=== PATIENT | male | born 1995 | race Caucasian/White ===

== ENCOUNTER 2023-11-26 20:03 | Inpatient (IN) | payer SELFPAY ==
[~2023-11-26] VITALS: Ht 185.4 cm; Wt 81.8 kg
[2023-11-27] MEDS ORDERED: MAGNESIUM HYDROXIDE SUSPENSION 30 ML UDCUP PO PRN (00:15)
[2023-11-27] MEDS ORDERED: HydrOXYzine PAMOATE 50 MG CAPSULE PO PRN (00:15)
[2023-11-27] MEDS ORDERED: GuaiFENesin/D-METHORPHAN [SUGAR-FREE] 200-20MG/10 ML SYRUP UDCUP PO PRN (00:15)
[2023-11-27] MEDS ORDERED: MAG HYDROX/ALUMINUM HYD/SIMETH ES 30 ML SUSPENSION UDCUP PO PRN (00:15)
[2023-11-27] MEDS ORDERED: LOPERAMIDE HCL 2 MG CAPSULE PO PRN ×2 (00:15)
[2023-11-27] MEDS ORDERED: PROMETHAZINE HCL 25 MG TABLET PO PRN (00:15)
[2023-11-27] MEDS: CYANOCOBALAMIN 1,000 MCG/ML VIAL IM ONE (00:31)
[2023-11-27] MEDS: TUBERCULIN, PURIFIED PROTEIN DERIVATIVE 5 TU/0.1 ML SYRINGE ID ONE (00:32)
[2023-11-27 01:47] LABS: COVID AG,FIA SOURCE NASAL SWAB
[2023-11-27 02:01] LABS: BASOPHILS % (AUTO) 0.6 % (0.0-2.0); EOSINOPHILS % (AUTO) 0 % (1.0-6.0); HEMOGLOBIN 15.3 g/dL (13.5-17.5); LYMPHOCYTES # (AUTO) 3.2 K/uL (1.0-4.8); LYMPHOCYTES % (AUTO) 26.4 % (22.0-44.0); MEAN CORPUSCULAR HEMOGLOBIN 30.1 pg (26.0-34.0); MEAN CORPUSCULAR HGB CONC 32.6 G/dL (31.0-37.0); MEAN CORPUSCULAR VOLUME 92 fL (80-100); MONOCYTES # (AUTO) 0.3 K/uL (0.1-1.0); MONOCYTES % (AUTO) 2.8 % (2.0-9.0); NEUTROPHILS # (AUTO) 8.5 K/uL (1.8-7.7); NEUTROPHILS % (AUTO) 70.2 % (40.0-70.0); PLATELET COUNT (AUTO) 255 K/uL (150-450); RED BLOOD CELL COUNT(AUTO) 5.08 MIL/uL (4.50-5.90); RED CELL DISTRIBUTION WIDTH 13.9 % (11.5-14.5); WHITE BLOOD COUNT (AUTO) 12.1 K/uL (4.5-11.0)
[2023-11-27 02:04] LABS: PH,URINE DRUG SCREEN 5.5 (5.0-8.0)
[2023-11-27 02:04] LABS: SARS-COV2 (COVID) ANTIGEN,FIA Negative (Negative)
[2023-11-27 02:11] LABS: AMPHET/METH SCREEN,URINE NEGATIVE (NEGATIVE); BARBITURATE SCREEN, URINE NEGATIVE (NEGATIVE); BENZODIAZEPINES SCREEN,URINE NEGATIVE (NEGATIVE); CANNABINOID SCREEN,URINE NEGATIVE (NEGATIVE); COCAINE SCREEN,URINE NEGATIVE (NEGATIVE); METHADONE SCREEN, URINE NEGATIVE (NEGATIVE); OPIATE SCREEN,URINE NEGATIVE (NEGATIVE); PHENCYCLIDINE SCREEN,URINE NEGATIVE (NEGATIVE)
[2023-11-27 02:13] LABS: ALCOHOL, URINE DRUG SCREEN POSITIVE (NEGATIVE)
[2023-11-27 02:16] LABS: ANION GAP 10 mmol/L (8-16); CALCIUM, TOTAL 9.3 mg/dL (8.8-10.5); CARBON DIOXIDE 30 mmol/L (22-29); CHLORIDE 102 mmol/L (98-107); CREATININE 1.07 mg/dL (0.60-1.30); GLOMERULAR FILTR. RATE CALC > 60 mL/min (>60); GLUCOSE,RANDOM 83 mg/dL (70-110); POTASSIUM 3.8 mmol/L (3.5-5.1); SODIUM SERUM 142 mmol/L (136-145); UREA NITROGEN, BLOOD 9 mg/dL (7-18)
[2023-11-27 02:17] LABS: ALCOHOL, BLOOD (SERUM) 326 mg/dL (0-10)
[2023-11-27 02:21] LABS: ALANINE AMINOTRANSFERASE 33 U/L (12-78); ALBUMIN 4.2 g/dL (3.4-5.0); ALKALINE PHOSPHATASE 70 U/L (46-116); ASPARTATE AMINOTRANSFERASE 78 U/L (15-37); BILIRUBIN,TOTAL 0.6 mg/dL (0.1-1.0); TOTAL PROTEIN, SERUM 8.3 g/dL (6.4-8.2)
[2023-11-27] MEDS: LORazepam 2 MG TABLET PO PRN (06:14)
[2023-11-27] MEDS: MULTIVITAMINS WITH MINERALS, THERAPEUTIC TABLET PO SCH (09:03)
[2023-11-27] MEDS: FOLIC ACID 1 MG TABLET PO SCH (09:03)
[2023-11-27] MEDS: THIAMINE 100 MG TABLET PO SCH (09:03)
[2023-11-27] MEDS: GABAPENTIN 100 MG CAPSULE PO SCH (09:03)
[2023-11-27] MEDS: OLANZapine 5 MG RAPDIS TABLET PO PRN (09:23)
[2023-11-27] MEDS: ACETAMINOPHEN 325 MG TABLET PO PRN (10:47)
[2023-11-27 11:35] VITALS: BP 127/85; PULSE 110; RESP 18; TEMP 98; O2SAT 100
[2023-11-27 12:35] VITALS: BP 125/82; PULSE 92; RESP 18; TEMP 97.8; O2SAT 98
[2023-11-27 13:35] VITALS: BP 120/78; PULSE 89; RESP 17; TEMP 98.2; O2SAT 99
[2023-11-27 14:35] VITALS: BP 121/76; PULSE 87; RESP 17; TEMP 98; O2SAT 98
[2023-11-27 18:35] VITALS: BP 118/70; PULSE 84; RESP 17; TEMP 98; O2SAT 99
[2023-11-27] MEDS: NALTREXONE HCL 50 MG TABLET PO SCH (22:27)
[2023-11-27] MEDS: MELATONIN 5 MG TABLET PO SCH (22:27)
[2023-11-27] MEDS: MIRTAZAPINE 15 MG TABLET PO SCH (22:29)
[2023-11-27 22:35] VITALS: BP 110/68; PULSE 78; RESP 17; TEMP 97.8; O2SAT 99
[2023-11-28] VITALS (7 sets, daily range): BP systolic 102–117; BP diastolic 57–78; PULSE 45–78; RESP 16–18; TEMP 97.3–98.9; O2SAT 96–100
[2023-11-28] MEDS ORDERED: LORazepam 2 MG TABLET PO PRN (07:00)
[2023-11-28 08:18] LABS: CHOL/HDL RATIO 2.2 (4.2-7.3)
[2023-11-28 08:19] LABS: HEMOGLOBIN A1C 5.6 % (3.8-5.6)
[2023-11-28] MEDS: LORazepam 2 MG TABLET PO SCH (09:30)
[2023-11-28] MEDS ORDERED: MELA5TAB40 PO (16:27)
[2023-11-28] MEDS ORDERED: NALT50TA33 PO (16:27)
[2023-11-28] MEDS ORDERED: MIRT-89 PO (16:27)
[2023-11-28] MEDS ORDERED: GABA-1216 PO (16:27)
[2023-11-29 08:26] VITALS: BP 141/62; PULSE 141; RESP 19; TEMP 98.1; O2SAT 100
[2023-11-30] MEDS ORDERED: LORazepam 1 MG TABLET PO PRN (07:00)
[2023-11-30] MEDS ORDERED: LORazepam 1 MG TABLET PO SCH (09:00)
[2023-12-01] MEDS ORDERED: LORazepam 1 MG TABLET PO PRN (07:00)
== END 2023-11-29 11:33 | disposition home or self-care (01) | DRG 885 ==
LOC: EMS 20:03 → B2S 11-27 11:14
PROVIDERS: ADMIT Psychiatry & Neurology Psychiatry; ATTEND Psychiatry & Neurology Psychiatry
PROC: GZHZZZZ Group Psychotherapy (ICD-10-PCS; principal; 2023-11-27)
PROC: GZ51ZZZ Individual Psychotherapy, Behavioral (ICD-10-PCS; 2023-11-27)
DX: F33.2 Major depressive disorder, recurrent severe without psychotic features (principal); F10.229 Alcohol dependence with intoxication, unspecified; R45.851 Suicidal ideations; F19.10 Other psychoactive substance abuse, uncomplicated; R74.01 Elevation of levels of liver transaminase levels; F17.210 Nicotine dependence, cigarettes, uncomplicated; Z20.822 Contact with and (suspected) exposure to COVID-19; D72.829 Elevated white blood cell count, unspecified; Z88.0 Allergy status to penicillin
CPT/HCPCS: 80053; 80061; 80307; 83036; 85025; 86592; 99285; G0480; J3420; Q9967